=== PATIENT | male | born 1940 | race Caucasian/White ===

== ENCOUNTER 2019-03-25 20:04 | Emergency (ER) | payer MEDICARE, OTHER ==
[2019-03-25 20:11] VITALS: TEMP 98.3
[2019-03-25] MEDS ORDERED: MECLIZINE 12.5 MG TAB PO STA (20:24)
[2019-03-25] MEDS ORDERED: SODIUM CHLORIDE 0.9% 1,000 ML IV STA (20:24)
--- NOTE | 2019-03-25 20:39 | ED ---
General Adult HPI - General Chief complaint: Dizziness Stated complaint: Dizzy Time Seen by Provider: 03/25/19 20:12 Source: patient, family Mode of arrival: wheelchair Limitations: no limitations - History of Present Illness Initial comments: 78-year-old male patient presents to the emergency department today for evaluation of dizziness. Patient states he has been having dizziness on and off for the last 3 weeks. Patient states since Monday it has been more consistent. He states that today he has been constant throughout the day. Patient states he feels dizzy no matter if he has walking, sitting, or lying down. Patient states when he is walking he feels like he is going to lose his balance and fall. States at rest that it feels like he feels wobbly. Denies any spinning sensation. Patient denies any headache, blurred vision, or double vision. Denies any nausea or vomiting with this. Denies any numbness, tingling, weakness to his extremities. Denies any recent head injury. Denies starting any new medications. Patient denies any recent rash, shortness breath, chest pain, abdominal pain, diarrhea, constipation, back pain, numbness, tingling, hematuria, dysuria, urinary urgency, urinary frequency, or any other complaints. - Related Data Home Medications Medication Instructions Recorded Confirmed Ascorbic Acid [Vitamin C] 1,000 mg PO BID 03/25/19 03/25/19 Glucosam/Dashawn-Msm1/C/Aquilino/Bosw 1 tab PO BID 03/25/19 03/25/19 [Glucosamine-Chondroitin Tablet] Lisinopril [Zestril] 20 mg PO AC-SUPPER 03/25/19 03/25/19 Multivitamins, Thera [Multivitamin 1 tab PO DAILY 03/25/19 03/25/19 (formulary)] Tenino-3 Fatty Acids/Fish Oil [Fish 1 cap PO TID 03/25/19 03/25/19 Oil 1,000 mg Softgel] Omeprazole [PriLOSEC] 20 mg PO AC-SUPPER 03/25/19 03/25/19 Simvastatin 5 mg PO AC-LUNCH 03/25/19 03/25/19 Ubidecarenone [Co Q-10] 100 mg PO BID 03/25/19 03/25/19 Previous Rx's Medication Instructions Recorded Meclizine HCl 25 mg PO BID #14 tablet 03/25/19 Sulfamethoxazole/Trimethoprim 1 each PO BID #20 tablet 03/25/19 [Bactrim DS 800-160 mg] Allergies Allergy/AdvReac Type Severity Reaction Status Date / Time No Known Allergies Allergy Verified 03/25/19 20:17 Review of Systems ROS Statement: Those systems with pertinent positive or pertinent negative responses have been documented in the HPI. ROS Other: All systems not noted in ROS Statement are negative. Past Medical History Past Medical History: GERD/Reflux, Hyperlipidemia, Hypertension History of Any Multi-Drug Resistant Organisms: None Reported Past Surgical History: Appendectomy Additional Past Surgical History / Comment(s): Eyes Past Psychological History: No Psychological Hx Reported Smoking Status: Never smoker Past Alcohol Use History: None Reported Past Drug Use History: None Reported General Exam Limitations: no limitations General appearance: alert, in no apparent distress, other (Physical well- developed, well-nourished elderly male patient in no acute distress. Vital signs upon presentation are temperature 98.3F, pulse 61, respirations 20, blood pressure 188/83, pulse ox 97% on room air.) Eye exam: Present: normal appearance, PERRL, EOMI, nystagmus (Right horizontal gaze, non-fatigable nystagmus). Absent: scleral icterus, conjunctival injection, periorbital swelling ENT exam: Present: normal exam, normal oropharynx, mucous membranes moist Respiratory exam: Present: normal lung sounds bilaterally. Absent: respiratory distress, wheezes, rales, rhonchi, stridor Cardiovascular Exam: Present: regular rate, normal rhythm, normal heart sounds. Absent: systolic murmur, diastolic murmur, rubs, gallop, clicks GI/Abdominal exam: Present: soft, normal bowel sounds. Absent: distended, tenderness, guarding, rebound, rigid Neurological exam: Present: alert, oriented X3, CN II-XII intact, other (Strength in all 4 extremities is 5/5) Psychiatric exam: Present: normal affect, normal mood Skin exam: Present: warm, dry, intact, normal color. Absent: rash Course Vital Signs 03/25/19 03/25/19 20:05 22:44 Temperature 98.3 F Pulse Rate 61 57 L Respiratory 20 18 Rate Blood Pressure 188/83 148/81 O2 Sat by Pulse 97 100 Oximetry EKG Findings - EKG Comments: EKG Findings:: EKG obtained at 2103 shows sinus bradycardia with PACs. Ventricular rate is 59, GA interval 186, QRS duration 84, QT 436, QTc 431. No evidence of ST elevation or depression. Medical Decision Making - Medical Decision Making 78-year-old male patient presents to the emergency department today for evaluation of dizziness. Patient states that he was having intermittent dizziness for the last 3 weeks. States it was worse today. Physical examination is unremarkable. Neurologically intact with no focal deficits. Labs reviewed and are unremarkable. CT of the brain was obtained and showed no acute intracranial abnormality. Patient did request neck CT given history of neck pain for the last [address] of the neck was also unremarkable. Patient was given meclizine here in the emergency department. Upon reevaluation he does report improvement of symptoms. He'll be discharged follow up with his primary care physician for recheck as soon as possible. To be given a prescription for this as well. Urinalysis did show evidence for prostatitis, we will treat with Bactrim. He is instructed to follow up with his urologist for recheck as soon as possible. Return parameters were discussed in detail. He verbalizes understanding and agrees with this plan. - Lab Data Result diagrams: 03/25/19 20:59 03/25/19 20:59 Lab Results 03/25/19 03/25/19 03/25/19 Range/Units 20:59 20:59 20:59 WBC 4.6 (3.8-10.6) k/uL RBC 5.08 (4.30-5.90) m/uL Hgb 16.0 (13.0-17.5) gm/dL Hct 46.7 (39.0-53.0) % MCV 91.9 (80.0-100.0) fL MCH 31.5 (25.0-35.0) pg MCHC 34.3 (31.0-37.0) g/dL RDW 14.2 (11.5-15.5) % Plt Count 120 L (150-450) k/uL Neutrophils % 69 % Lymphocytes % 23 % Monocytes % 4 % Eosinophils % 2 % Basophils % 1 % Neutrophils # 3.1 (1.3-7.7) k/uL Lymphocytes # 1.0 (1.0-4.8) k/uL Monocytes # 0.2 (0-1.0) k/uL Eosinophils # 0.1 (0-0.7) k/uL Basophils # 0.0 (0-0.2) k/uL PT 10.4 (9.0-12.0) sec INR 1.0 (<1.2) Sodium 142 (137-145) mmol/L Potassium 3.9 (3.5-5.1) mmol/L Chloride 106 (98-107) mmol/L Carbon Dioxide 28 (22-30) mmol/L Anion Gap 8 mmol/L BUN 19 (9-20) mg/dL Creatinine 0.86 (0.66-1.25) mg/dL Est GFR (CKD-EPI)AfAm >90 (>60 ml/min/1.73 sqM) Est GFR (CKD-EPI)NonAf 84 (>60 ml/min/1.73 sqM) Glucose 124 H (74-99) mg/dL Calcium 9.6 (8.4-10.2) mg/dL Total Bilirubin 0.6 (0.2-1.3) mg/dL AST 26 (17-59) U/L ALT 34 (21-72) U/L Alkaline Phosphatase 56 (38-126) U/L Troponin I (0.000-0.034) ng/mL Total Protein 7.2 (6.3-8.2) g/dL Albumin 4.5 (3.5-5.0) g/dL Urine Color Urine Appearance (Clear) Urine pH (5.0-8.0) Ur Specific [place] (1.001-1.035) Urine Protein (Negative) Urine Glucose (UA) (Negative) Urine Ketones (Negative) Urine Blood (Negative) Urine Nitrite (Negative) Urine Bilirubin (Negative) Urine Urobilinogen (<2.0) mg/dL Ur Leukocyte Esterase (Negative) Urine RBC (0-5) /hpf Urine WBC (0-5) /hpf Urine Mucus (None) /hpf 03/25/19 03/25/19 Range/Units 20:59 21:30 WBC (3.8-10.6) k/uL RBC (4.30-5.90) m/uL Hgb (13.0-17.5) gm/dL Hct (39.0-53.0) % MCV (80.0-100.0) fL MCH (25.0-35.0) pg MCHC (31.0-37.0) g/dL RDW (11.5-15.5) % Plt Count (150-450) k/uL Neutrophils % % Lymphocytes % % Monocytes % % Eosinophils % % Basophils % % Neutrophils # (1.3-7.7) k/uL Lymphocytes # (1.0-4.8) k/uL Monocytes # (0-1.0) k/uL Eosinophils # (0-0.7) k/uL Basophils # (0-0.2) k/uL PT (9.0-12.0) sec INR (<1.2) Sodium (137-145) mmol/L Potassium (3.5-5.1) mmol/L Chloride (98-107) mmol/L Carbon Dioxide (22-30) mmol/L Anion Gap mmol/L BUN (9-20) mg/dL Creatinine (0.66-1.25) mg/dL Est GFR (CKD-EPI)AfAm (>60 ml/min/1.73 sqM) Est GFR (CKD-EPI)NonAf (>60 ml/min/1.73 sqM) Glucose (74-99) mg/dL Calcium (8.4-10.2) mg/dL Total Bilirubin (0.2-1.3) mg/dL AST (17-59) U/L ALT (21-72) U/L Alkaline Phosphatase (38-126) U/L Troponin I <0.012 (0.000-0.034) ng/mL Total Protein (6.3-8.2) g/dL Albumin (3.5-5.0) g/dL Urine Color Yellow Urine Appearance Clear (Clear) Urine pH 5.5 (5.0-8.0) Ur Specific [place] 1.023 (1.001-1.035) Urine Protein 1+ H (Negative) Urine Glucose (UA) Negative (Negative) Urine Ketones Negative (Negative) Urine Blood Negative (Negative) Urine Nitrite Negative (Negative) Urine Bilirubin Negative (Negative) Urine Urobilinogen <2.0 (<2.0) mg/dL Ur Leukocyte Esterase Large H (Negative) Urine RBC 6 H (0-5) /hpf Urine WBC 120 H (0-5) /hpf Urine Mucus Rare H (None) /hpf - Radiology Data Radiology results: report reviewed, image reviewed CT brain and C-spine without contrast was obtained. Report was reviewed in its entirety. Impression by Dr. Hills shows spondylotic changes in the lower cervical spine. No fracture seen. Cervical atrophy appropriate for age. No acute intracranial abnormality Disposition Clinical Impression: Vertigo, Prostatitis Disposition: HOME SELF-CARE Condition: Good Instructions (If sedation given, give patient instructions): Prostatitis (ED), Vertigo (ED), Dizziness (ED) Additional Instructions: Take medication as directed. Follow up with your urologist and primary care physician for recheck in 1-2 days. Prescriptions: Sulfamethoxazole/Trimethoprim [Bactrim DS 800-160 mg] 1 each PO BID #20 tablet Meclizine HCl 25 mg PO BID #14 tablet Is patient prescribed a controlled substance at d/c from ED?: No Referrals: Nonstaff,Physician [Primary Care Provider] - 1-2 days Time of Disposition: 22:20
[2019-03-25 21:19] LABS: Basophils % (A) 1 %; Eosinophils # (A) 0.1 k/uL (0-0.7); Eosinophils % (A) 2 %; HCT 46.7 % (39.0-53.0); Lymphocytes % (A) 23 %; MCH 31.5 pg (25.0-35.0); MCHC 34.3 g/dL (31.0-37.0); MCV 91.9 fL (80.0-100.0); Monocytes # (A) 0.2 k/uL (0-1.0); Monocytes % (A) 4 %; Neutrophils # (A) 3.1 k/uL (1.3-7.7); Neutrophils % (A) 69 %; Platelet Count 120 k/uL (150-450); RBC 5.08 m/uL (4.30-5.90); RDW 14.2 % (11.5-15.5); WBC 4.6 k/uL (3.8-10.6)
[2019-03-25 21:26] LABS: ALT 34 U/L (21-72); AST 26 U/L (17-59); Albumin 4.5 g/dL (3.5-5.0); Alkaline Phosphatase 56 U/L (38-126); Anion Gap 8 mmol/L; Blood Urea Nitrogen 19 mg/dL (9-20); Calcium 9.6 mg/dL (8.4-10.2); Carbon Dioxide 28 mmol/L (22-30); Chloride 106 mmol/L (98-107); Glucose 124 mg/dL (74-99); Potassium 3.9 mmol/L (3.5-5.1); Sodium 142 mmol/L (137-145); Total Bilirubin 0.6 mg/dL (0.2-1.3); Total Protein 7.2 g/dL (6.3-8.2)
[2019-03-25 21:27] LABS: Prothrombin Time 10.4 sec (9.0-12.0)
[2019-03-25 21:49] LABS: Appearance,Urine Clear (Clear); Bilirubin,Urine Negative (Negative); Blood,Urine Negative (Negative); Color,Urine Yellow; Glucose,Urine (UA) Negative (Negative); Ketones,Urine Negative (Negative); Leukocyte Esterase,Urine Large (Negative); Mucus,Urine Rare /hpf; Nitrite,Urine Negative (Negative); PH, Urine 5.5 (5.0-8.0); Protein,Urine 1+ (Negative); RBC,Urine 6 /hpf (0-5); Specific Gravity,Urine 1.023 (1.001-1.035); Urobilinogen,Urine <2.0 mg/dL (<2.0); WBC,Urine 120 /hpf (0-5)
--- NOTE | 2019-03-25 21:53 | CT ---
EXAMINATION TYPE: CT brain ivan cedeno DATE OF EXAM: 03/25/2019 COMPARISON: None HISTORY: Dizziness and neck pain. CT DLP: 1366.9 mGycm Automated exposure control for dose reduction was used. TECHNIQUE: CT scan of the head and cervical spine are performed without contrast. FINDINGS: There is mild cerebral cortical atrophy. There is no mass effect nor Shift. There is no sign of intracranial hemorrhage. The calvarium is intact. The cervical vertebra have normal alignment. There is mild spondylotic change at C5-6 C6-7 with spurr ing in the endplates. Facet joints are intact. The skull base is intact. IMPRESSION: Spondylotic changes in the lower cervical spine. No fracture seen. Cerebral atrophy appropriate for age. No acute intracranial abnormality.
[2019-03-25] MEDS ORDERED: SULFAMETH-TMP DS STARTER PACK 2 TAB BTL PO STA (22:21)
[2019-03-25 22:46] VITALS: BP 148/81; PULSE 57; RESP 18
== END 2019-03-25 22:46 | disposition home or self-care (01) ==
LOC: EC 20:04
DX: H55.00 Unspecified nystagmus (principal); N41.9 Inflammatory disease of prostate, unspecified; M47.812 Spondylosis without myelopathy or radiculopathy, cervical region; M54.2 Cervicalgia; E78.5 Hyperlipidemia, unspecified; I10 Essential (primary) hypertension; K21.9 Gastro-esophageal reflux disease without esophagitis; Z79.899 Other long term (current) drug therapy; Z98.890 Other specified postprocedural states
CPT/HCPCS: 36415; 70450; 72125; 80053; 81001; 84484; 85025; 85610; 93005; 96360; 99284